=== PATIENT | male | born 1955 | race Caucasian/White ===

== ENCOUNTER → 2017-09-21 | Outpatient (CLI) | payer BC ==
--- NOTE | 2017-09-21 15:37 | US ---
EXAMINATION TYPE: US extremity nonvasc mass LT DATE OF EXAM: 09/21/2017 COMPARISON: NONE CLINICAL HISTORY: M79.662 Pain In Limb. Pain in posterior left calf Posterior calf scanned. No masses or fluid collections visualized. Dedicated area of pain pictures taken. No masses or fluid collections visualized. IMPRESSION: No distinct abnormality seen. Correlate clinically.
== END ==
LOC: RADUSWWP 15:02
PROVIDERS: ATTEND Family Medicine
DX: M79.662 Pain in left lower leg (principal); Z88.0 Allergy status to penicillin

== ENCOUNTER → 2023-01-20 | Outpatient (CLI) | payer OTHER ==
[2023-01-20 16:25] LABS: Basophils # (A) 0.08 X 10*3/uL (0.00-0.10); Basophils % (A) 1.2 %; Eosinophils # (A) 0.29 X 10*3/uL (0.04-0.35); Eosinophils % (A) 4.3 %; HCT 46.1 % (39.6-50.0); HGB 16.2 d/dL (13.0-17.0); Lymphocytes % (A) 28.3 %; MCH 30.6 pg (27.0-32.0); MCHC 35.1 d/dL (32.0-37.0); Mean Platelet Volume 8.2 FL (9.5-12.2); Monocytes # (A) 0.52 X 10*3/uL (0.20-1.00); Monocytes % (A) 7.7 %; NRBC Per 100 WBC 0 X 10*3/uL (0.00-0.01); Neutrophils # (A) 3.91 X 10*3/uL (1.80-7.70); Neutrophils % (A) 58.4 %; Platelet Count 226 X 10*3/uL (140-440); RDW 12.9 % (11.5-14.5); WBC 6.71 X 10*3/uL (4.50-10.00)
== END | disposition home or self-care (01) ==
LOC: LABPAT 09:20
PROVIDERS: ATTEND Surgery
DX: Z01.812 Encounter for preprocedural laboratory examination (principal); K46.9 Unspecified abdominal hernia without obstruction or gangrene
CPT/HCPCS: 36415; 85025; 93005

== ENCOUNTER 2023-01-22 05:55 | Day surgery (SDC) | payer BC, OTHER ==
[2023-01-18 13:56] VITALS: BMI 30.9
--- NOTE | 2023-01-21 15:56 | P.GSHP ---
History of Present Illness H&P Date: 01/21/23 Chief Complaint: Recurrent left inguinal hernia 67-year-old male scheduled for laparoscopic repair recurrent left inguinal hernia. Patient had initial open repair indirect inguinal hernia on the left in 2016 with mesh. Recently has had swelling and pain. Examination office demonstrates recurrent reducible left inguinal hernia. No symptoms on right. Past Medical History Past Medical History: Hypertension Additional Past Medical History / Comment(s): Vertigo. History of Any Multi-Drug Resistant Organisms: None Reported Past Surgical History: Hernia Repair Additional Past Surgical History / Comment(s): COLONOSCOPY. Past Anesthesia/Blood Transfusion Reactions: No Reported Reaction, Motion Sickness Additional Past Anesthesia/Blood Transfusion Reaction / Comment(s): Vertigo. Past Psychological History: No Psychological Hx Reported Smoking Status: Never smoker Past Alcohol Use History: None Reported Past Drug Use History: None Reported - Past Family History Mother Family Medical History: Cancer Additional Family Medical History / Comment(s): OVARIAN CANCER. Brother(s) Family Medical History: Cancer Additional Family Medical History / Comment(s): Rectal Cancer. Medications and Allergies Home Medications Medication Instructions Recorded Confirmed Type Naproxen [Naprosyn] 500 mg PO DAILY PRN 01/18/23 01/18/23 History Omeprazole 20 mg PO DAILY PRN 01/18/23 01/18/23 History Valsartan/Hydrochlorothiazide 1 each PO QAM 01/18/23 01/18/23 History [Valsartan-Hctz 320-12.5 mg Tab] Allergies Allergy/AdvReac Type Severity Reaction Status Date / Time amoxicillin Allergy Rash/Hives Verified 01/18/23 13:42 Surgical - Exam Physical exam: General: Well-developed, well-nourished HEENT: Normocephalic, sclerae nonicteric Abdomen: Nontender, nondistended, reducible left inguinal hernia Extremities: No edema Neuro: Alert and oriented Assessment and Plan (1) Left inguinal hernia Narrative/Plan: 67-year-old male with recurrent reducible left inguinal hernia. We'll proceed with laparoscopic da [place] assisted repair left inguinal hernia with mesh, possible open, possible bilateral. Risks of bleeding, infection, recurrence, bladder and bowel injury, numbness, nerve injury, conversion to an open procedure were discussed with the patient. The patient understands and wishes to proceed. Status: Acute Code(s): K40.90 - UNIL INGUINAL HERNIA, W/O OBST OR GANGR, NOT SPCF RECUR SNOMED Code(s): 347237351
[~2023-01-22 05:55] MED LIST: ACETAMINOPHEN TAB 500 MG TAB PO PRN; HEPARIN SODIUM,PORCINE/PF 5,000 UNIT/0.5 ML SYRINGE SQ PRN
[2023-01-22] MEDS ORDERED: LACTATED RINGERS 1,000 ML IV SCH (06:16)
[2023-01-22] MEDS ORDERED: DEXAMETHASONE SOD PHOSPHATE 4 MG/ML 1 ML VIAL IV ONE (06:16)
[2023-01-22] MEDS ORDERED: ONDANSETRON 4 MG/2 ML VIAL IVP ONE (06:16)
[2023-01-22] MEDS ORDERED: DEXAMETHASONE SOD PHOSPHATE 4 MG/ML 1 ML VIAL ONE (06:59)
[2023-01-22] MEDS ORDERED: ACETAMINOPHEN IV (For NPO) 1,000 MG/100 ML VIAL ONE (06:59)
[2023-01-22] MEDS ORDERED: ONDANSETRON 4 MG/2 ML VIAL ONE (06:59)
[2023-01-22] MEDS ORDERED: HEPARIN SODIUM,PORCINE 5,000 UNIT/ML 1 ML VIAL ONE (06:59)
[2023-01-22] MEDS ORDERED: HYDROmorphone 0.5 MG/0.5 ML SYRINGE IVP PRN (07:00)
[2023-01-22] MEDS ORDERED: MIDAZOLAM 2 MG/2 ML VIAL IV PRN (07:00)
[2023-01-22] MEDS ORDERED: fentaNYL (PF) 50 MCG/ML 2 ML AMP ONE (07:25)
[2023-01-22] MEDS ORDERED: NEOSTIGMINE 1 MG/ML 10 ML VIAL ONE (07:25)
[2023-01-22] MEDS ORDERED: ROCURONIUM 10 MG/ML (5 ML VIAL) IV ONE (07:25)
[2023-01-22] MEDS ORDERED: LIDOCAINE 2% INJ 20 MG/ML (2 ML VIAL) ONE (07:25)
[2023-01-22] MEDS ORDERED: ePHEDrine 50 MG/ML 1 ML VIAL ONE (07:25)
[2023-01-22] MEDS ORDERED: PROPOFOL 10 MG/ML 20 ML VIAL IV ONE (07:25)
[2023-01-22] MEDS ORDERED: MIDAZOLAM 2 MG/2 ML VIAL ONE (07:25)
[2023-01-22] MEDS ORDERED: GLYCOPYRROLATE 0.2 MG/ML 2 ML VIAL ONE (07:25)
[2023-01-22] MEDS ORDERED: SUCCINYLCHOLINE CHLORIDE 200 MG/10 ML VIAL IV ONE (07:25)
[2023-01-22] MEDS ORDERED: LACTATED RINGERS 1,000 ML IV ONE (07:30)
[2023-01-22] MEDS ORDERED: LIDOCAINE 0.5%-EPI 1:200,000 50 ML VIAL SQ ONE (07:30)
[2023-01-22 09:17] VITALS: RESP 16; TEMP 97
[2023-01-22] MEDS ORDERED: TAMSULOSIN 0.4 MG CAP.ER.24H PO STA (09:22)
--- NOTE | 2023-01-22 09:22 | P.OP ---
Date of Procedure: 01/22/23 Procedure(s) Performed: PREOPERATIVE DIAGNOSIS: Recurrent left inguinal hernia POSTOPERATIVE DIAGNOSIS: Recurrent left indirect inguinal hernia PROCEDURE: Laparoscopic da [place] assisted repair recurrent left inguinal hernia with mesh SURGEON: Dr. Brewster ANESTHESIA: General OPERATIVE PROCEDURE DETAILS: Patient was placed in the operating table in the supine position. The patient was placed under general anesthesia. The abdomen was prepped and draped in usual sterile fashion. A small curvilinear supr aumbilical incision was made. The fascia was retracted anteriorly with Igor forceps. The Veress needle was inserted. The saline drop test was normal. Insufflation took place to 15 mmHg. An 8 mm trocar was placed into the peritoneal cavity. 2 additional 8 mm trochars were placed in the right upper quadrant and left upper quadrant under visualization. The robotic arms were then brought in and docked into place. The fenestrated bipolar was used in the left arm and the laparoscopic sammy was utilized in the right arm. A 30 8 mm scope was used in the up position. The peritoneal cavity was inspected. No visible hernia on the right was seen. The patient had a large recurrent indirect hernia on the left. The peritoneum was incised in a horizontal fashion cephalad to the internal inguinal ring. Following that careful dissection of the preperitoneal space took place. This took place using both electrocautery, sharp dissection but primarily blunt dissection. Visualization of the pubic tubercle and Berto's ligament took place medially. Full dissection took place laterally as well. The hernia sac was fully dissected. I could see a few silk sutures on the hernia sac. Once we had adequate space the [id number] Progrip mesh was advanced into the preperitoneal space and flattened out appropriately to cover all potential hernia sites. The mesh was sutured to Berto's ligament extending medially and then superiorly along the midline using a absorbable 30V lock suture. The peritoneal defect was then closed using a absorbable 2-0 VLok suture. The hernia sac was incorporated into the peritoneal closure to help prevent future recurrence. The pneumoperitoneum was then evacuated. The skin of all 3 sites was closed using a 4-0 Monocryl stitch. Skin glue was then appli ed. TYPE OF MESH USED: Progrip LOCATION OF MESH: Preperitoneal FIXATION: 30V lock PREOPERATIVE DISCUSSION ON SMOKING CESSASTION: Yes PREOPERATIVE DISCUSSION ON MORBID OBESITY: Yes PREOPERATIVE DISCUSSION ON APPROPRIATE USE OF NARCOTIC USE: Yes PREOPERATIVE EDUCATION: Multi Modal, Smoking Cessation and Weight Loss with BMI over 35. DISPOSITION: Stable to recovery room
[2023-01-22 10:50] VITALS: BP 157/83; PULSE 60
[2023-01-22] MEDS ORDERED: ACETAMINOPHEN TAB 325 MG TAB PO SCH (12:00)
[2023-01-22] MEDS ORDERED: IBUPROFEN 600 MG TAB PO SCH (12:30)
== END 2023-01-22 11:18 | disposition home or self-care (01) ==
LOC: ORWHC2ENDO 05:55
PROVIDERS: ATTEND Surgery
DX: K40.91 Unilateral inguinal hernia, without obstruction or gangrene, recurrent (principal); I10 Essential (primary) hypertension; Z98.890 Other specified postprocedural states; Z80.0 Family history of malignant neoplasm of digestive organs; Z88.0 Allergy status to penicillin; Z79.899 Other long term (current) drug therapy
CPT/HCPCS: 86900; 86901; 86850; 49651; C1781; J2250; J0330; J1644; J1100; J2710; J0690; J2405; J3010; J2704; J2001

== ENCOUNTER 2023-05-04 12:57 | Day surgery (SDC) | payer OTHER ==
[2023-05-04] MEDS: LACTATED RINGERS 1,000 ML IV SCH ×2 (13:38→13:39)
[2023-05-04] MEDS ORDERED: PROPOFOL 10 MG/ML 20 ML VIAL IV ONE (13:38)
[2023-05-04] MEDS ORDERED: LIDOCAINE 1% INJ 10MG/ML (20 ML MDV) ONE (13:38)
--- NOTE | 2023-05-04 13:46 | P.GSHP ---
History of Present Illness H&P Date: 05/04/23 Chief Complaint: Colon cancer screening. 68-year-old male here for colonoscopy. Last colonoscopy 6 years ago. Brother with rectal cancer. Patient may have had polyps in the past. No bowel complaints currently. Past Medical History Past Medical History: Hypertension Additional Past Medical History / Comment(s): Vertigo. History of Any Multi-Drug Resistant Organisms: None Reported Past Surgical History: Hernia Repair Additional Past Surgical History / Comment(s): COLONOSCOPY. Past Anesthesia/Blood Transfusion Reactions: No Reported Reaction, Motion Sickness Additional Past Anesthesia/Blood Transfusion Reaction / Comment(s): Vertigo. Past Psychological History: No Psychological Hx Reported Smoking Status: Never smoker Past Alcohol Use History: None Reported Past Drug Use History: None Reported - Past Family History Mother Family Medical History: Cancer Additional Family Medical History / Comment(s): OVARIAN CANCER. Brother(s) Family Medical History: Cancer Additional Family Medical History / Comment(s): Rectal Cancer. Medications and Allergies Home Medications Medication Instructions Recorded Confirmed Type Omeprazole 20 mg PO DAILY PRN 01/18/23 05/04/23 History Valsartan/Hydrochlorothiazide 1 each PO QAM 01/18/23 05/04/23 History [Valsartan-Hctz 320-12.5 mg Tab] Ibuprofen [Motrin] 400 mg PO Q6HR PRN 05/04/23 05/04/23 History Allergies Allergy/AdvReac Type Severity Reaction Status Date / Time amoxicillin Allergy Rash/Hives Verified 05/04/23 13:22 Surgical - Exam Vital Signs Temp Pulse Resp BP Pulse Ox 97.9 F 72 18 150/85 96 05/04/23 13:29 05/04/23 13:29 05/04/23 13:29 05/04/23 13:29 05/04/23 13:29 Physical exam: General: Well-developed, well-nourished HEENT: Normocephalic, sclerae nonicteric Abdomen: Nontender, nondistended Extremities: No edema Neuro: Alert and oriented Assessment and Plan (1) Colon cancer screening Narrative/Plan: Will proceed with colonoscopy at this time. Current Visit: Yes Status: Acute Code(s): Z12.11 - ENCOUNTER FOR SCREENING FOR MALIGNANT NEOPLASM OF COLON SNOMED Code(s): 859889038
[2023-05-04 13:51] VITALS: TEMP 97.9
--- NOTE | 2023-05-04 14:00 | P.PCN ---
Date of Procedure: 05/04/23 Procedure(s) Performed: PREOPERATIVE DIAGNOSIS: Colon cancer screening, family history POSTOPERATIVE DIAGNOSIS: Diverticulosis PROCEDURE: Colonoscopy ANESTHESIA: MAC SURGEON: Jackson Brewster M.D. SPECIMENS: None ENDOSCOPIC PROCEDURE: The patient was placed on the endoscopy table in the left decubitus position. The Olympus colonoscope was inserted into the anus and passed under direct visualization to the base of the cecum. The appendiceal orifice was visualized. From that point the scope was slowly withdrawn inspecting all surfaces carefully. There were no neoplastic inflammatory or polypoid lesions throughout the cecum, ascending, transverse, descending, sigmoid and rectum. There was mild scattered diverticulosis noted. The patient's prep was slightly suboptimal. Digital rectal examination was normal. The patient was taken to the recovery room in stable condition per anesthesia guidelines. RECOMMENDATIONS: Resume diet. Repeat colonoscopy 5 years.
[2023-05-04 14:15] VITALS: RESP 16
[2023-05-04 14:39] VITALS: BP 139/76; PULSE 69
== END 2023-05-04 14:51 | disposition home or self-care (01) ==
LOC: ORWHC2ENDO 12:57
PROVIDERS: ATTEND Surgery
DX: Z12.11 Encounter for screening for malignant neoplasm of colon (principal); K57.30 Diverticulosis of large intestine without perforation or abscess without bleeding; I10 Essential (primary) hypertension; Z80.0 Family history of malignant neoplasm of digestive organs; Z98.890 Other specified postprocedural states; Z79.899 Other long term (current) drug therapy; Z88.0 Allergy status to penicillin
CPT/HCPCS: 45378; J2001; J2704

== ENCOUNTER → 2024-07-31 | Outpatient (CLI) | payer OTHER ==
--- NOTE | 2024-07-31 15:50 | XR ---
EXAMINATION TYPE: XR hand complete LT DATE OF EXAM: 07/31/2024 3:45 PM COMPARISON: None CLINICAL INDICATION: Male, 69 years old with history of M65.352 TRIGGER FINGER, LEFT LITTLE FINGER; P HH, pain TECHNIQUE: XR hand complete LT 3 views were obtained. FINDINGS: Normal alignment of the visualized joints. No acute osseous pathology is identified. No e vidence of soft tissue swelling. Multifocal degeneration changes with joint space narrowing and osteo phyte formation. IMPRESSION: No acute osseous pathology. 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 [facility], , 07/31/2024 3:48 PM
== END | disposition home or self-care (01) ==
LOC: RADXRMAIN 15:18
PROVIDERS: ATTEND Family Medicine
DX: M19.042 Primary osteoarthritis, left hand (principal); M65.352 Trigger finger, left little finger